=== PATIENT | male | born 1955 | race Hispanic/Latino ===

== ENCOUNTER 2022-05-15 11:25 | Inpatient (IN) | payer OTHER ==
[~2022-05-15] VITALS: Ht 167.6 cm; Wt 70.7 kg
[2022-05-15] MEDS ORDERED: ONDANSETRON 4MG INJ IVP ONE (12:30)
[2022-05-15] MEDS ORDERED: ZOSYN 3.375GM +NS 50ML IVPB ONE (12:30)
[2022-05-15] MEDS ORDERED: MORPHINE 4 MG SYG IVP ONE (12:30)
[2022-05-15] MEDS ORDERED: 0.9% NACL 500ML IV.SOLN 500 ML IV ONE (12:30)
[2022-05-15 13:38] LABS: BASOPHILS % (AUTO) 0.3 % (0.0-5.0); EOSINOPHILS % (AUTO) 0.1 % (0.0-8.0); HEMATOCRIT 33.7 % (42-54); MEAN CORPUSCULAR HEMOGLOBIN 29.9 pg (27.0-33.0); MEAN CORPUSCULAR HGB CONC 34.1 g/dL (32.0-36.0); MEAN CORPUSCULAR VOLUME 87.8 fL (79-99); MONOCYTES % (AUTO) 8.7 % (3.0-13.0); NEUTROPHILS % (AUTO) 83.4 % (40.0-77.0); PLATELET COUNT (AUTO) 337 K/uL (130-400); RED BLOOD CELL COUNT(AUTO) 3.84 MIL/uL (4.50-6.20); RED CELL DISTRIBUTION WIDTH 11.9 % (11.0-15.5); WHITE BLOOD COUNT (AUTO) 14.9 K/uL (4.8-10.8)
[2022-05-15 13:51] LABS: CREATININE 1.3 mg/dL (0.5-1.5); POTASSIUM 4.1 mmol/L (3.5-5.1)
[2022-05-15 13:57] LABS: ALBUMIN 2.6 g/dL (3.5-5.0); TOTAL PROTEIN, SERUM 7.2 g/dL (6.0-8.3)
[2022-05-15] MEDS ORDERED: 0.9% NACL 250ML 250 ML IV ONE (14:00)
[2022-05-15] MEDS ORDERED: INSULIN HUMULIN R 100 UNIT/ML 3ML SQ ONE (14:00)
[2022-05-15 14:45] LABS: PLATELET MORPHOLOGY PLT CLUMPS PRESENT
[2022-05-15 15:10] LABS: APPEARANCE,URINE CLEAR (CLEAR); BILIRUBIN,URINE NEGATIVE (NEGATIVE); COLOR,URINE YELLOW (YELLOW); GLUCOSE, URINE (UA) >=1000 mg/dL (NEGATIVE); KETONES,URINE 20 mg/dL (NEGATIVE); LEUKOCYTE ESTERASE ,URINE NEGATIVE Leu/uL (NEGATIVE); NITRATE,URINE NEGATIVE (NEGATIVE); OCCULT BLOOD,URINE NEGATIVE (NEGATIVE); PH,URINE 5.5 (5.0-8.0); PROTEIN,URINE 30 mg/dL (NEGATIVE); UROBILINOGEN,URINE 0.2 mg/dL (0.2-1.0)
[2022-05-15 15:18] LABS: BACTERIA,URINE FEW /HPF (None Seen); MUCUS,URINE FEW LPF (None Seen); SQUAMOUS EPITHELIAL CELL,UR RARE /HPF (0-2)
[2022-05-15] MEDS ORDERED: GLUCAGON 1MG KIT 1 MG ML IM PRN (15:30)
[2022-05-15] MEDS ORDERED: MAGNESIUM 2GM PREMIX 50ML 50 ML IV PRN (15:30)
[2022-05-15] MEDS ORDERED: DEXTROSE 50%-WATER 50 ML DISP.SYRIN IV PRN (15:30)
[2022-05-15] MEDS ORDERED: VANCOMYCIN PROTOCOL PER PHARMACY IV PRN (15:30)
[2022-05-15] MEDS ORDERED: ACETAMINOPHEN 325 MG TAB PO PRN ×2 (15:30)
[2022-05-15] MEDS ORDERED: LIDOCAINE HCL-MPF 1% 2ML VIAL IV PRN (15:30)
[2022-05-15] MEDS ORDERED: POTASSIUM CHLORIDE 20MEQ/100ML 100 ML IV PRN (15:30)
[2022-05-15] MEDS ORDERED: POTASSIUM CHLORIDE 10% ELIXIR 20 MEQ/15 ML UDCUP PO PRN (15:30)
[2022-05-15] MEDS ORDERED: ONDANSETRON 4MG INJ IV PRN (15:30)
[2022-05-15] MEDS ORDERED: FAMOTIDINE 20MG TAB ONE (15:43)
[2022-05-15] MEDS ORDERED: VANCOMYCIN 1G/250ML KIT 250 ML IV ONE (15:44)
[2022-05-15] MEDS: 0.9%NACL 1000ML 1,000 ML IV SCH (15:48)
[2022-05-15] MEDS: FAMOTIDINE 20MG TAB PO SCH (15:49)
[2022-05-15] MEDS: VANCOMYCIN 1G/250ML KIT 250 ML IV SCH (15:49)
[2022-05-15 16:20] LABS: HEMOGLOBIN A1C 9.3 % (4.0-6.0)
[2022-05-15] MEDS: INSULIN HUMULIN R 100 UNIT/ML 3ML SQ SCH ×2 (17:29→22:38)
[2022-05-15] MEDS ORDERED: INSULIN GLARGINE 100 UNITS/ML 10 ML VIAL SQ SCH (21:00)
[2022-05-15] MEDS: ZOSYN 3.375GM+NS 50ML 50 ML IVPB SCH (22:50)
[2022-05-15] MEDS: ACETAMINOPHEN WITH CODEINE 1 TAB TAB PO PRN (22:51)
[2022-05-15 23:40] VITALS: BP 130/71
[2022-05-16] VITALS (21 sets, daily range): BP systolic 109–160; BP diastolic 54–79
[2022-05-16] MEDS: ZOSYN 3.375GM+NS 50ML 50 ML IVPB SCH ×3 (04:40→20:22)
[2022-05-16] MEDS: 0.9%NACL 1000ML 1,000 ML IV SCH (04:40)
[2022-05-16 05:33] LABS: BASOPHILS % (AUTO) 0.2 % (0.0-5.0); EOSINOPHILS % (AUTO) 0.4 % (0.0-8.0); HEMATOCRIT 32.2 % (42-54); LYMPHOCYTES % (AUTO) 6.6 % (21.0-51.0); MEAN CORPUSCULAR HEMOGLOBIN 29.7 pg (27.0-33.0); MEAN CORPUSCULAR HGB CONC 33.5 g/dL (32.0-36.0); MEAN CORPUSCULAR VOLUME 88.5 fL (79-99); MONOCYTES % (AUTO) 7.2 % (3.0-13.0); NEUTROPHILS % (AUTO) 84.9 % (40.0-77.0); PLATELET COUNT (AUTO) 267 K/uL (130-400); RED BLOOD CELL COUNT(AUTO) 3.64 MIL/uL (4.50-6.20); RED CELL DISTRIBUTION WIDTH 12.1 % (11.0-15.5); WHITE BLOOD COUNT (AUTO) 16.6 K/uL (4.8-10.8)
[2022-05-16] MEDS: INSULIN HUMULIN R 100 UNIT/ML 3ML SQ SCH ×4 (06:05→20:23)
[2022-05-16 06:16] LABS: ALBUMIN 2.2 g/dL (3.5-5.0); CREATININE 0.9 mg/dL (0.5-1.5); TOTAL PROTEIN, SERUM 6.5 g/dL (6.0-8.3)
[2022-05-16] MEDS: FAMOTIDINE 20MG TAB PO SCH ×2 (08:34→20:22)
[2022-05-16] MEDS: ENOXAPARIN SODIUM 30 MG/0.3 ML SQ SCH (09:00)
[2022-05-16] MEDS: VANCOMYCIN 1G/250ML KIT 250 ML IV SCH ×2 (09:34→20:22)
[2022-05-16] MEDS ORDERED: MIDAZOLAM HCL 1 MG/ML 2ML VIAL ONE (13:28)
[2022-05-16] MEDS ORDERED: FENTANYL CITRATE PF 50 MCG/1 ML 2ML VIAL ONE ×2 (13:28→14:16)
[2022-05-16] MEDS ORDERED: PROPOFOL 10 MG/ML 20ML VIAL IV ONE (13:42)
[2022-05-16] MEDS ORDERED: ROCURONIUM 10MG/1ML SYR 10 MG/ML ML ONE (13:42)
[2022-05-16] MEDS ORDERED: PHENYLEPHRINE HCL 10 MG/ML 1ML VIAL IV ONE (13:52)
[2022-05-16] MEDS ORDERED: MEPERIDINE-PF 25 MG/ML SYG ONE (14:09)
[2022-05-16] MEDS ORDERED: ONDANSETRON 4MG INJ ONE (14:11)
[2022-05-16] MEDS: INSULIN GLARGINE 100 UNITS/ML 10 ML VIAL SQ SCH (20:24)
[2022-05-16] MEDS: ACETAMINOPHEN WITH CODEINE 1 TAB TAB PO PRN (20:34)
[2022-05-17] VITALS: BP 127/62
[2022-05-17 04:00] VITALS: BP 100/66
[2022-05-17] MEDS: ZOSYN 3.375GM+NS 50ML 50 ML IVPB SCH ×3 (05:37→20:35)
[2022-05-17] MEDS: INSULIN HUMULIN R 100 UNIT/ML 3ML SQ SCH ×4 (06:32→20:36)
[2022-05-17 07:40] VITALS: BP 93/47
[2022-05-17 08:04] LABS: BASOPHILS % (AUTO) 0.4 % (0.0-5.0); EOSINOPHILS % (AUTO) 0.8 % (0.0-8.0); HEMATOCRIT 30.9 % (42-54); LYMPHOCYTES % (AUTO) 10.1 % (21.0-51.0); MEAN CORPUSCULAR HGB CONC 33.3 g/dL (32.0-36.0); MEAN CORPUSCULAR VOLUME 90.1 fL (79-99); MONOCYTES % (AUTO) 7.1 % (3.0-13.0); NEUTROPHILS % (AUTO) 81.1 % (40.0-77.0); PLATELET COUNT (AUTO) 327 K/uL (130-400); RED BLOOD CELL COUNT(AUTO) 3.43 MIL/uL (4.50-6.20); RED CELL DISTRIBUTION WIDTH 12.3 % (11.0-15.5); WHITE BLOOD COUNT (AUTO) 13.9 K/uL (4.8-10.8)
[2022-05-17 08:26] LABS: ALBUMIN 2.1 g/dL (3.5-5.0); CREATININE 0.9 mg/dL (0.5-1.5); MAGNESIUM 1.8 mg/dL (1.80-2.40); POTASSIUM 4.1 mmol/L (3.5-5.1); TOTAL PROTEIN, SERUM 6.6 g/dL (6.0-8.3)
[2022-05-17] MEDS: FAMOTIDINE 20MG TAB PO SCH ×2 (09:23→20:34)
[2022-05-17] MEDS: ENOXAPARIN SODIUM 30 MG/0.3 ML SQ SCH (09:24)
[2022-05-17] MEDS ORDERED: VANCOMYCIN 1G/250ML KIT 250 ML IV SCH ×2 (09:27→09:31)
[2022-05-17] MEDS ORDERED: VANCOMYCIN 2GM/500 ML BAG 500 ML IV SCH (10:00)
[2022-05-17] MEDS: ACETAMINOPHEN WITH CODEINE 1 TAB TAB PO PRN ×2 (10:53→18:37)
[2022-05-17 10:55] VITALS: BP 127/67
[2022-05-17] MEDS ORDERED: LINAGLIPTIN 5 MG TABLET PO SCH (15:00)
[2022-05-17 15:40] VITALS: BP 107/65
[2022-05-17 20:34] VITALS: BP 125/61
[2022-05-17] MEDS: INSULIN GLARGINE 100 UNITS/ML 10 ML VIAL SQ SCH (20:36)
[2022-05-17] MEDS: SODIUM HYPOCHLORITE 0.25% [HALF STRENGTH] 473 ML TOPICAL SOLN TP SCH (20:43)
[2022-05-17] MEDS: VANCOMYCIN 1G/250ML KIT 250 ML IV SCH (21:34)
[2022-05-18] VITALS (7 sets, daily range): BP systolic 91–139; BP diastolic 47–73
[2022-05-18] MEDS: ZOSYN 3.375GM+NS 50ML 50 ML IVPB SCH ×3 (04:02→21:01)
[2022-05-18] MEDS: ACETAMINOPHEN WITH CODEINE 1 TAB TAB PO PRN ×4 (04:09→21:04)
[2022-05-18] MEDS: VANCOMYCIN 1G/250ML KIT 250 ML IV SCH (05:08)
[2022-05-18 05:09] LABS: BASOPHILS % (AUTO) 0.5 % (0.0-5.0); EOSINOPHILS % (AUTO) 1.9 % (0.0-8.0); LYMPHOCYTES % (AUTO) 22.4 % (21.0-51.0); MEAN CORPUSCULAR HEMOGLOBIN 29.6 pg (27.0-33.0); MEAN CORPUSCULAR HGB CONC 33.1 g/dL (32.0-36.0); MEAN CORPUSCULAR VOLUME 89.5 fL (79-99); MONOCYTES % (AUTO) 9.9 % (3.0-13.0); NEUTROPHILS % (AUTO) 64.9 % (40.0-77.0); PLATELET COUNT (AUTO) 320 K/uL (130-400); RED BLOOD CELL COUNT(AUTO) 3.24 MIL/uL (4.50-6.20); RED CELL DISTRIBUTION WIDTH 12.2 % (11.0-15.5); WHITE BLOOD COUNT (AUTO) 9.8 K/uL (4.8-10.8)
[2022-05-18 05:24] LABS: ALBUMIN 1.9 g/dL (3.5-5.0); CREATININE 0.9 mg/dL (0.5-1.5); MAGNESIUM 2.1 mg/dL (1.80-2.40); POTASSIUM 3.6 mmol/L (3.5-5.1); TOTAL PROTEIN, SERUM 6.2 g/dL (6.0-8.3)
[2022-05-18] MEDS: KCL 20 MEQ ERTAB PO PRN ×3 (05:34→17:03)
[2022-05-18] MEDS: INSULIN HUMULIN R 100 UNIT/ML 3ML SQ SCH ×4 (05:50→21:02)
[2022-05-18] MEDS: LINAGLIPTIN 5 MG TABLET PO SCH (08:34)
[2022-05-18] MEDS: FAMOTIDINE 20MG TAB PO SCH ×2 (08:34→21:01)
[2022-05-18] MEDS: ENOXAPARIN SODIUM 30 MG/0.3 ML SQ SCH (08:35)
[2022-05-18] MEDS: SODIUM HYPOCHLORITE 0.25% [HALF STRENGTH] 473 ML TOPICAL SOLN TP SCH ×2 (08:47→21:04)
[2022-05-18] MEDS ORDERED: INSULIN GLARGINE 100 UNITS/ML 10 ML VIAL SQ SCH (21:00)
[2022-05-18] MEDS: 0.9% NACL 250ML 250 ML IV SCH (22:19)
[2022-05-18] MEDS: VANCOMYCIN 750MG VIAL IVPB SCH (22:19)
[2022-05-19 03:50] VITALS: BP 132/66
[2022-05-19 04:47] LABS: BASOPHILS % (AUTO) 0.6 % (0.0-5.0); EOSINOPHILS % (AUTO) 3.2 % (0.0-8.0); HEMATOCRIT 31.5 % (42-54); LYMPHOCYTES % (AUTO) 19.5 % (21.0-51.0); MEAN CORPUSCULAR HEMOGLOBIN 29.5 pg (27.0-33.0); MEAN CORPUSCULAR VOLUME 89.2 fL (79-99); MONOCYTES % (AUTO) 9.9 % (3.0-13.0); NEUTROPHILS % (AUTO) 66.2 % (40.0-77.0); PLATELET COUNT (AUTO) 386 K/uL (130-400); RED BLOOD CELL COUNT(AUTO) 3.53 MIL/uL (4.50-6.20); RED CELL DISTRIBUTION WIDTH 12.4 % (11.0-15.5); WHITE BLOOD COUNT (AUTO) 8.5 K/uL (4.8-10.8)
[2022-05-19 05:05] LABS: CREATININE 0.8 mg/dL (0.5-1.5); MAGNESIUM 1.9 mg/dL (1.80-2.40); POTASSIUM 4.4 mmol/L (3.5-5.1); TOTAL PROTEIN, SERUM 6.6 g/dL (6.0-8.3)
[2022-05-19] MEDS: ZOSYN 3.375GM+NS 50ML 50 ML IVPB SCH ×2 (05:23→13:20)
[2022-05-19] MEDS: VANCOMYCIN 750MG VIAL IVPB SCH ×2 (05:24→14:24)
[2022-05-19] MEDS: 0.9% NACL 250ML 250 ML IV SCH ×2 (05:24→14:26)
[2022-05-19] MEDS: INSULIN HUMULIN R 100 UNIT/ML 3ML SQ SCH ×2 (07:12→11:30)
[2022-05-19 08:00] VITALS: BP 136/76
[2022-05-19] MEDS: LINAGLIPTIN 5 MG TABLET PO SCH (09:09)
[2022-05-19] MEDS: FAMOTIDINE 20MG TAB PO SCH (09:09)
[2022-05-19] MEDS: ACETAMINOPHEN WITH CODEINE 1 TAB TAB PO PRN ×2 (09:09→14:23)
[2022-05-19] MEDS: ENOXAPARIN SODIUM 30 MG/0.3 ML SQ SCH (09:10)
[2022-05-19] MEDS: SODIUM HYPOCHLORITE 0.25% [HALF STRENGTH] 473 ML TOPICAL SOLN TP SCH (09:11)
[2022-05-19 11:48] VITALS: BP 123/67
== END 2022-05-19 16:40 | disposition home or self-care (01) | DRG 602 ==
LOC: EDH 11:25 → EDHIP 11:26 → 3CH 21:28
PROVIDERS: ADMIT Hospitalist; ATTEND Hospitalist
PROC: 0Y9B0ZZ Drainage of Left Lower Extremity, Open Approach (ICD-10-PCS; principal; 2022-05-16 13:42)
DX: L03.116 Cellulitis of left lower limb (principal); E43 Unspecified severe protein-calorie malnutrition; E87.1 Hypo-osmolality and hyponatremia; L02.91 Cutaneous abscess, unspecified; L02.416 Cutaneous abscess of left lower limb; E11.65 Type 2 diabetes mellitus with hyperglycemia; E86.0 Dehydration; D64.9 Anemia, unspecified; Z91.199 Patient's noncompliance with other medical treatment and regimen due to unspecified reason; Z68.25 Body mass index [BMI] 25.0-25.9, adult
CPT/HCPCS: 36415; 76882; 80053; 80202; 81001; 82010; 82948; 83036; 83735; 85025; 87070; 87076; 87077; 87186; 87635; 93005; G0378; J1650; J1815; J2175; J2250; J2270; J2370; J2405; J2543; J2704; J3010; J3370; J3475; J7030; J7040; J7050